=== PATIENT | female | born 1990 | race African-American/Black ===

== ENCOUNTER 2022-06-14 05:27 | Inpatient (IN) ==
[2022-06-14] MEDS ORDERED: LACTATED RINGERS 1,000 ML IV ONE ×2 (05:43→06:42)
[2022-06-14] MEDS ORDERED: TRANEXAMIC ACID 1,000 MG in SODIUM CHLORIDE 0.9% 100 ML IV PRN (05:43)
[2022-06-14] MEDS ORDERED: ONDANSETRON 4 MG/2 ML VIAL IV PRN ×2 (05:43→15:29)
[2022-06-14] MEDS ORDERED: LACTATED RINGERS 500 ML IV PRN (05:43)
[2022-06-14] MEDS ORDERED: miSOPROStoL 200 MCG TABLET RECTAL PRN (05:43)
[2022-06-14] MEDS ORDERED: OXYTOCIN/LR 20 UNIT/1,000 ML BAG IV ONE ×3 (05:43→15:29)
[2022-06-14] MEDS ORDERED: CARBOPROST TROMETHAMINE 250 MCG/ML AMP IM PRN (05:43)
[2022-06-14] MEDS ORDERED: METHYLERGONOVINE 0.2 MG/1 ML AMP IM PRN (05:43)
[2022-06-14] MEDS ORDERED: LACTATED RINGERS 500 ML IV ONE (05:43)
[2022-06-14] MEDS ORDERED: LACTATED RINGERS 1,000 ML IV SCH (06:00)
[2022-06-14 06:15] LABS: Basophils % 0.4 % (0.0-0.8); Eosinophils # 0.1 10*3/uL (0.0-0.87); Eosinophils % 1.2 % (0.00-10.9); Hematocrit 32.3 VOL% (35.7-47.0); Hemoglobin 10.8 GM/DL (12.0-16.0); Immature Granulocytes % 0.9 %; Immature Granulocytes Absolute 0.07 #; Lymphocytes # 1.5 10*3/uL (1.4-4.0); Lymphocytes % 19.2 % (21.3-54.2); Mean Corpuscular HGB Conc 33.4 GM/DL (32-36); Mean Corpuscular Volume 86.8 FL (87-102); Monocytes # 0.6 10*3/uL (0.11-0.8); Monocytes % 7.3 % (1.7-12.7); Platelet Count 167 T/CUMM (130-400); Red Blood Count 3.72 MC/CUMM (3.8-5.5); Red Cell Distribution Width 14.2 % (9.3-17.3)
[2022-06-14 06:32] LABS: Albumin 2.7 G/DL (3.4-5.0); Bilirubin,Total 0.6 MG/DL (0.20-1.00); Calcium 8.9 MG/DL (8.5-10.1); Osmolality,Calculated 274.4 MOS/KG (273-304); Potassium 3.4 MMOL/L (3.5-5.1)
[2022-06-14] MEDS ORDERED: hydrALAZINE 20 MG/1 ML VIAL IV ONE ×2 (06:37→10:51)
[2022-06-14] MEDS ORDERED: FAMOTIDINE 20 MG/2 ML VIAL IV ONE ×2 (06:42→07:00)
[2022-06-14] MEDS ORDERED: CITRIC ACID/SODIUM CITRATE 30 ML UDCUP PO ONE ×2 (06:42→07:00)
[2022-06-14] MEDS ORDERED: ceFAZolin 2,000 MG/50 ML DUPLEX IV ONE (06:47)
[2022-06-14] MEDS ORDERED: buprenorphine HCL 0.3 MG/ML VIAL ONE (06:48)
[2022-06-14] MEDS ORDERED: BUPIVACAINE SPINAL 0.75% 2 ML AMP SPINAL ONE (06:48)
[2022-06-14] MEDS ORDERED: ONDANSETRON 4 MG/2 ML VIAL ONE (06:48)
[2022-06-14] MEDS ORDERED: PHENYLEPHRINE 1 MG/10 ML SYRINGE IV ONE (06:48)
[2022-06-14] MEDS ORDERED: AMPICILLIN INJ 2,000 MG in SODIUM CHLORIDE 0.9% 100 ML IV ONE (07:00)
[2022-06-14] MEDS ORDERED: miSOPROStoL 200 MCG TABLET ONE (07:01)
[2022-06-14] MEDS ORDERED: TRANEXAMIC ACID 1,000 MG/10 ML VIAL ONE (07:01)
[2022-06-14] MEDS ORDERED: METHYLERGONOVINE 0.2 MG/1 ML AMP ONE (07:02)
[2022-06-14] MEDS ORDERED: CARBOPROST TROMETHAMINE 250 MCG/ML AMP IM ONE (07:02)
[2022-06-14] MEDS ORDERED: SODIUM CHLORIDE 0.9% 0 ML IV ONE (07:02)
[2022-06-14] MEDS ORDERED: SODIUM CHLORIDE 0.9% 1,000 ML IV PRN (07:05)
[2022-06-14] MEDS ORDERED: propofoL 200 MG/20 ML VIAL IV ONE (07:50)
[2022-06-14] MEDS ORDERED: ESMOLOL 100 MG/10 ML VIAL IV ONE (07:50)
[2022-06-14] MEDS ORDERED: ACETAMINOPHEN INJ 1,000 MG/100 ML VIAL IV ONE (07:50)
[2022-06-14] MEDS ORDERED: SUCCINYLCHOLINE 200 MG/10 ML VIAL ONE (07:50)
[2022-06-14] MEDS ORDERED: MIDAZOLAM 2 MG/2 ML VIAL ONE (07:53)
[2022-06-14] MEDS ORDERED: fentaNYL 100 MCG/2 ML VIAL ONE (07:53)
[2022-06-14] MEDS ORDERED: OXYTOCIN 10 UNIT/ML VIAL ONE (08:02)
[2022-06-14 08:21] LABS: Cord Venous Blood HCO3 25.2 MMOL/L; Cord Venous Blood PCO2 52.3 MMHG; Cord Venous Blood PO2 30.3
[2022-06-14] MEDS ORDERED: HYDROmorphone 1 MG/1 ML SYRINGE ONE (08:22)
[2022-06-14] MEDS ORDERED: ceFAZolin 1,000 MG VIAL ONE (09:07)
[2022-06-14] MEDS ORDERED: HYDROmorphone 1 MG/1 ML SYRINGE IV ONE ×2 (09:28→11:35)
[2022-06-14] MEDS: hydrALAZINE 20 MG/1 ML VIAL IV PRN ×2 (10:08→10:29)
[2022-06-14] MEDS: LABETALOL 100 MG TABLET PO SCH ×2 (13:43→21:49)
[2022-06-14] MEDS ORDERED: diphenhydrAMINE 50 MG/1 ML VIAL IV ONE (13:53)
[2022-06-14] MEDS: ACETAMINOPHEN 500 MG TABLET PO SCH ×2 (14:35→20:14)
[2022-06-14] MEDS: KETOROLAC 30 MG/1 ML VIAL IV SCH ×2 (14:35→20:13)
[2022-06-14] MEDS ORDERED: ACETAMINOPHEN 325 MG TABLET PO PRN (15:29)
[2022-06-14] MEDS ORDERED: MEASLES/MUMPS/RUBELLA VACCINE 0.5 ML VIAL SUBCUT ONE (15:29)
[2022-06-14] MEDS ORDERED: RHO(D) IMMUNE GLOBULIN 300 MCG SYRINGE IM ONE (15:29)
[2022-06-14] MEDS ORDERED: HYDROCORTISONE 2.5% RECTAL CREAM 30 GM TUBE TOP PRN (15:29)
[2022-06-14] MEDS ORDERED: WITCH HAZEL PADS 100/JAR TOP PRN (15:29)
[2022-06-14] MEDS ORDERED: LANOLIN 50% CREAM 0.3 OZ TUBE TOP PRN (15:29)
[2022-06-14] MEDS ORDERED: DIPH/TET/ACEL PERT BOOSTER VACCINE 0.5 ML VIAL IM ONE (15:29)
[2022-06-14] MEDS ORDERED: BISACODYL 10 MG SUPP RECTAL PRN (15:29)
[2022-06-14] MEDS ORDERED: BENZOCAINE 20%/MENTHOL 0.5% SPRAY 56 GM CAN TOP PRN (15:29)
[2022-06-14] MEDS ORDERED: IBUPROFEN 800 MG TABLET PO PRN (15:29)
[2022-06-14] MEDS ORDERED: oxyCODONE/ACETAMINOPHEN 5-325 MG TABLET PO PRN (15:29)
[2022-06-14] MEDS: HYDROmorphone 1 MG/1 ML SYRINGE IV PRN ×2 (17:52→23:10)
[2022-06-15] MEDS: KETOROLAC 30 MG/1 ML VIAL IV SCH ×2 (02:08→08:03)
[2022-06-15] MEDS: ACETAMINOPHEN 500 MG TABLET PO SCH (02:09)
[2022-06-15] MEDS: HYDROmorphone 1 MG/1 ML SYRINGE IV PRN (03:58)
[2022-06-15] MEDS: LABETALOL 100 MG TABLET PO SCH ×3 (05:29→21:44)
[2022-06-15 06:24] LABS: Basophils % 0.2 % (0.0-0.8); Eosinophils # 0.1 10*3/uL (0.0-0.87); Eosinophils % 0.6 % (0.00-10.9); Hematocrit 24.2 VOL% (35.7-47.0); Immature Granulocytes % 0.7 %; Immature Granulocytes Absolute 0.09 #; Lymphocytes # 1.1 10*3/uL (1.4-4.0); Lymphocytes % 8.7 % (21.3-54.2); Mean Corpuscular HGB Conc 32.6 GM/DL (32-36); Mean Corpuscular Volume 89.3 FL (87-102); Monocytes # 0.8 10*3/uL (0.11-0.8); Monocytes % 6.5 % (1.7-12.7); Neutrophils % 83.3 % (38.7-73.9); Platelet Count 147 T/CUMM (130-400); Red Cell Distribution Width 14.6 % (9.3-17.3)
[2022-06-15 06:25] LABS: Hemoglobin 7.9 GM/DL (12.0-16.0); Red Blood Count 2.71 MC/CUMM (3.8-5.5); White Blood Count 12.8 T/CUMM (4-12)
[2022-06-15] MEDS: DOCUSATE SODIUM 100 MG CAPSULE PO SCH ×2 (09:44→21:00)
[2022-06-15] MEDS: oxyCODONE/ACETAMINOPHEN 5-325 MG TABLET PO PRN ×3 (09:45→21:43)
[2022-06-15] MEDS: IRON (CARBONYL)/VIT C/B12/FA TABLET PO SCH (09:45)
[2022-06-15] MEDS ORDERED: MAGNESIUM SULF RIDER 4 GM/100 ML PREMIX IV ONE (11:36)
[2022-06-15] MEDS: LACTATED RINGERS 1,000 ML IV SCH (11:56)
[2022-06-15] MEDS ORDERED: cloNIDine 0.1 MG/24 HR PATCH TRANSDERM SCH (12:00)
[2022-06-15] MEDS: MAGNESIUM SULF DRIP 40 GM/1,000 ML ML IV SCH (12:23)
[2022-06-16] MEDS ORDERED: LABETALOL 100 MG/20 ML VIAL IV PRN (05:27)
[2022-06-16] MEDS ORDERED: LABETALOL 100 MG/20 ML VIAL IV ONE (05:28)
[2022-06-16] MEDS ORDERED: amLODIPine 10 MG TABLET PO ONE (05:30)
[2022-06-16] MEDS: LACTATED RINGERS 1,000 ML IV SCH (06:32)
[2022-06-16] MEDS: MAGNESIUM SULF DRIP 40 GM/1,000 ML ML IV SCH ×2 (06:34→14:31)
[2022-06-16] MEDS: LABETALOL 100 MG TABLET PO SCH ×3 (06:35→22:10)
[2022-06-16] MEDS: DOCUSATE SODIUM 100 MG CAPSULE PO SCH ×3 (08:47→22:10)
[2022-06-16] MEDS: IRON (CARBONYL)/VIT C/B12/FA TABLET PO SCH ×2 (08:48→22:10)
[2022-06-16] MEDS ORDERED: hydrOXYzine HCL 25 MG/1 ML VIAL IM PRN (08:58)
[2022-06-16] MEDS ORDERED: ONDANSETRON 4 MG/2 ML VIAL IV ONE (08:58)
[2022-06-16] MEDS ORDERED: FAMOTIDINE 20 MG/2 ML VIAL IV ONE (08:58)
[2022-06-16] MEDS ORDERED: PROMETHAZINE 25 MG/1 ML VIAL IM ONE (08:58)
[2022-06-16] MEDS ORDERED: diphenhydrAMINE 50 MG/1 ML VIAL IV PRN ×2 (08:58)
[2022-06-16] MEDS ORDERED: CITRIC ACID/SODIUM CITRATE 30 ML UDCUP PO ONE (08:58)
[2022-06-16] MEDS ORDERED: ePHEDrine 50 MG/ML VIAL IV PRN (08:58)
[2022-06-16] MEDS ORDERED: NALOXONE 0.4 MG/ML VIAL IV PRN (08:58)
[2022-06-16] MEDS ORDERED: fentaNYL 2 MCG/ROPIV 0.2% EPID 100 ML EPIDURAL SCH (09:00)
[2022-06-16] MEDS ORDERED: amLODIPine 10 MG TABLET PO SCH (09:00)
[2022-06-16] MEDS: oxyCODONE/ACETAMINOPHEN 5-325 MG TABLET PO PRN ×2 (10:59→20:40)
[2022-06-16 12:02] LABS: Basophils % 0.2 % (0.0-0.8); Eosinophils # 0.1 10*3/uL (0.0-0.87); Eosinophils % 0.8 % (0.00-10.9); Hemoglobin 7.7 GM/DL (12.0-16.0); Immature Granulocytes % 0.9 %; Immature Granulocytes Absolute 0.11 #; Lymphocytes # 1.3 10*3/uL (1.4-4.0); Lymphocytes % 10.5 % (21.3-54.2); Mean Corpuscular HGB Conc 32.1 GM/DL (32-36); Mean Corpuscular Volume 89.2 FL (87-102); Mean Platelet Volume 10.2 FL (9.6-12.0); Monocytes # 0.8 10*3/uL (0.11-0.8); Monocytes % 6.2 % (1.7-12.7); Neutrophils % 81.4 % (38.7-73.9); Platelet Count 182 T/CUMM (130-400); Red Blood Count 2.69 MC/CUMM (3.8-5.5); Red Cell Distribution Width 14.9 % (9.3-17.3)
[2022-06-17] MEDS: oxyCODONE/ACETAMINOPHEN 5-325 MG TABLET PO PRN ×2 (03:51→10:20)
[2022-06-17] MEDS: LABETALOL 100 MG TABLET PO SCH (06:04)
[2022-06-17 06:27] LABS: Basophils % 0.3 % (0.0-0.8); Eosinophils # 0.2 10*3/uL (0.0-0.87); Eosinophils % 1.8 % (0.00-10.9); Hematocrit 25.2 VOL% (35.7-47.0); Immature Granulocytes % 1.2 %; Immature Granulocytes Absolute 0.13 #; Lymphocytes # 1.5 10*3/uL (1.4-4.0); Lymphocytes % 14.3 % (21.3-54.2); Mean Corpuscular HGB Conc 31.7 GM/DL (32-36); Mean Corpuscular Volume 90.6 FL (87-102); Mean Platelet Volume 10.7 FL (9.6-12.0); Monocytes # 0.8 10*3/uL (0.11-0.8); NRBC # 0.02 10*3/uL; Neutrophils % 75.4 % (38.7-73.9); Platelet Count 215 T/CUMM (130-400); Red Blood Count 2.78 MC/CUMM (3.8-5.5); Red Cell Distribution Width 14.8 % (9.3-17.3); White Blood Count 10.8 T/CUMM (4-12)
[2022-06-17 06:36] LABS: Calcium 8.2 MG/DL (8.5-10.1); Osmolality,Calculated 276.4 MOS/KG (273-304); Potassium 4.3 MMOL/L (3.5-5.1)
[2022-06-17] MEDS ORDERED: FUROSEMIDE 40 MG/4 ML VIAL IV ONE (07:37)
[2022-06-17] MEDS ORDERED: amLODIPine 10 MG TABLET PO SCH (09:00)
[2022-06-17] MEDS: IRON (CARBONYL)/VIT C/B12/FA TABLET PO SCH (10:16)
[2022-06-17] MEDS: DOCUSATE SODIUM 100 MG CAPSULE PO SCH (10:17)
[2022-06-17] MEDS ORDERED: FUROSEMIDE 20 MG TABLET PO ONE (10:35)
[2022-06-17] MEDS ORDERED: MAGNESIUM HYDROXIDE SUSP 30 ML UDCUP PO PRN (10:36)
[2022-06-17] MEDS ORDERED: PANTOPRAZOLE 40 MG TABLET PO SCH (10:37)
[2022-06-17 12:09] VITALS: BP 179/91
== END 2022-06-17 15:50 | disposition home or self-care (01) | DRG 540 ==
LOC: N.LD 05:27 → N.OB 06-15 09:32 → N.LD 06-15 11:38 → N.OB 06-16 20:17
PROVIDERS: ADMIT Specialist; ATTEND Specialist
PROC: LDCSECT (ICD-10-PCS; 2022-06-14 07:00)